=== PATIENT | male | born 1980 | race Caucasian/White ===

== ENCOUNTER 2019-09-12 10:54 | Inpatient (IN) ==
[2019-09-12] MEDS ORDERED: ATIVAN IV ONE (11:22)
[2019-09-12] MEDS ORDERED: NS 1,000 ML IV ONE (11:22)
[2019-09-12] MEDS ORDERED: MAGNESIUM SULFATE 2 GM/S.W.I. 2 GM/50 ML IVPB IV ONE (11:23)
[2019-09-12 11:55] LABS: BASO# 0.06 X1000 (0.0-0.2); BASO% 0.8 % (0.0-0.8); EOS# 0.02 X1000 (0.0-0.7); EOS% 0.3 % (0.0-10.0); HEMATOCRIT 42.5 % (42.0-52.0); HEMOGLOBIN 15.4 g/dL (14.0-18.0); IMM GRAN# 0.02 X1000 (0.0-0.04); IMM GRAN% 0.3 % (0.0-0.5); LYMPH# 3.17 X1000 (1.2-3.4); LYMPH% 40.9 % (20.5-51.1); MCH 28.4 PG (27-31); MCHC 36.2 g/dL (33-37); MCV 78.3 FL (81-99); MONO# 0.86 X1000 (0.11-0.59); MONO% 11.1 % (1.7-9.3); MPV 9.5 FL (7.4-10.4); NEUT# 3.63 X1000 (1.4-6.5); NEUT% 46.6 % (42.2-75.2); PLT 218 X1000 (130-400); RBC 5.43 XMIL (4.7-6.1); RDW 13.5 % (11.5-14.5); WBC 7.76 X1000 (4.8-10.8)
--- NOTE | 2019-09-12 11:56 | Diag Imaging Result Doc PS360 ---
CHEST-PORTABLE - 09/12/2019 INDICATION: withdrawals COMPARISON: None FINDINGS: The lungs are normally expanded and clear. Heart size and mediastinal contours are normal. No pneumothorax or pleural effusion. IMPRESSION: Negative exam. Electronically signed by Nikita Wilson 09/12/2019 11:54 AM
[2019-09-12 12:03] LABS: PTT 38.9 Seconds (22.3-41.8)
[2019-09-12 12:13] LABS: ACETONE SERUM NEGATIVE (NEGATIVE)
[2019-09-12 12:35] LABS: INR 2.1; PROTIME 24.1 Seconds (11.0-16.0)
[2019-09-12 12:42] LABS: URINE SOURCE CLEAN CATCH
--- NOTE | 2019-09-12 12:44 | EKG Report ---
Test Performed on : 09/12/2019 12:19:30 PM Test Reason : tachycardia Blood Pressure : / mmHG Vent. Rate : 116 BPM Atrial Rate : 116 BPM P-R Int : 134 ms QRS Dur : 098 ms QT Int : 346 ms P-R-T Axes : 067 005 -16 degrees QTc Int : 480 ms Sinus tachycardia. Junctional ST depression, probably normal Borderline ECG No previous ECGs available Unconfirmed Result
[2019-09-12 12:53] LABS: ACETAMINOPHEN < 1.2 ug/mL (10-30); AGAP 12; ALB/GLOB RATIO 1.7; ALBUMIN 4.3 g/dL (3.5-5.0); ALKALINE PHOSPHATASE 73 U/L (32-122); BUN 10 mg/dL (8-22); CALCIUM 8.5 mg/dL (8.8-10.2); CHLORIDE 93 mmol/L (98-107); CK PROFILE 972 U/L (24-204); COSMO 274; CREATININE 0.6 mg/dL (0.7-1.2); ESTIMATED GFR > 60; GLUCOSE 114 mg/dL (70-104); LIPASE 115 U/L (13-60); MAGNESIUM 1.3 mg/dL (1.5-2.7); POTASSIUM 3.4 mmol/L (3.5-5.1); SODIUM 137 mmol/L (136-145); TCO2 32 mmol/L (25-35); TOTAL PROTEIN 6.9 g/dL (6.3-8.3)
[2019-09-12 12:59] LABS: BILIRUBIN URINE MODERATE (NEGATIVE); BLOOD URINE MODERATE (NEGATIVE); COLOR YELLOW; GLUCOSE URINE TRACE mg/dL (NEGATIVE); KETONE URINE 10 mg/dL (NEGATIVE); LEUKOCYTES URINE NEGATIVE (NEGATIVE); NITRITE URINE NEGATIVE (NEGATIVE); PROTEIN URINE >600 mg/dL (NEGATIVE); SP GRAVITY URINE 1.035; TURBIDITY URINE CLEAR (CLEAR); UR AMPHETAMINES QUAL NONE DETECTED (NONE DETECT); UR BARBITUATES QUAL NONE DETECTED (NONE DETECT); UR BENZODIAZEPIN QUAL NONE DETECTED (NONE DETECT); UR CANNABINOIDS QUAL NONE DETECTED (NONE DETECT); UR COCAINE QUAL NONE DETECTED (NONE DETECT); UR METHADONE QUAL NONE DETECTED (NONE DETECT); UR OPIATES QUAL NONE DETECTED (NONE DETECT); UR OXYCODONE QUAL NONE DETECTED (NONE DETECT); UR PCP QUAL NONE DETECTED (NONE DETECT); UROBILINOGEN URINE 8 mg/dL (NORMAL)
[2019-09-12] MEDS ORDERED: M.V.I.-12 10 ML, FOLIC ACID 1 MG, MAGNESIUM SULFATE 1 GM, THIAMINE 100 MG in NS 1,000 ML IV ONE (13:00)
[2019-09-12 13:01] LABS: UR EPITHELIAL CELLS <10 /HPF (<10); URINE BACTERIA NEGATIVE /HPF; URINE WBC <10 /HPF (<10)
[2019-09-12 13:10] LABS: GOT 3519 U/L (10-34); GPT 3629 U/L (10-44)
[2019-09-12 13:42] LABS: CK INDEX 1.4 (0.0-2.5); CK-MB 13.94 ng/mL (0.0-5.0)
--- NOTE | 2019-09-12 15:28 | Diag Imaging Result Doc PS360 ---
EXAM: CT ABD/PELVIS W/IV CONT ONLY 09/12/2019 HISTORY: hepatitis TECHNIQUE: This exam was performed using automated exposure control, adjustment of mA or kV according to patient size, and/or use of iterative reconstruction technique. COMMENT: There are no previous studies available for comparison. There is no evidence of acute disease in the visualized portion of the chest. The liver is hypodense with atrophy and/or resection of the right lobe and hypertrophy of the left. The spleen is not enlarged. The pancreas is unremarkable. The adrenal glands are not enlarged. There are surgical clips adjacent to the right hepatic surface. The portal vein appears to be patent. The aorta is not distended. The kidneys are without evidence of hydronephrosis or mass. There is a small cortical cyst laterally in the mid left renal cortex. There is no evidence of bowel obstruction. There is no evidence of appendicitis. No significant adenopathy is present. Pelvis: There is no evidence of free fluid. The urinary bladder is not distended. The regional skeleton is intact. IMPRESSION: Postsurgical changes. Cirrhosis and/or hepatic steatosis. Electronically signed by Vijay Aviles 09/12/2019 3:26 PM
[2019-09-12] MEDS ORDERED: STERILE WATER INJ. INJ ONE (15:47)
[2019-09-12] MEDS ORDERED: BENADRYL IV ONE (15:47)
[2019-09-12] MEDS ORDERED: GEODON IM ONE (15:47)
[2019-09-12] MEDS ORDERED: VITAMIN K 10 MG in NS 50 ML IV ONE (16:51)
[2019-09-12] MEDS ORDERED: BENTYL PO PRN (16:56)
[2019-09-12] MEDS ORDERED: ATARAX PO PRN (16:56)
--- NOTE | 2019-09-12 18:25 | PROVIDER DOCUMENTATION ---
This chart was entered by Anuel Stone Scribe, acting as scribe for Ron Amos MD. HPI-General Adult - General Chief Complaint: Alcohol Withdrawal Stated Complaint: Alcohol withdrawal Time Seen by Provider: 09/12/19 11:04 Source: patient Allergies/Adverse Reactions: Patient Allergies Allergy/AdvReac Type Severity Reaction Status Date / Time cilnidipine Allergy Unknown Verified 09/12/19 12:04 Home Medications: Home Medication List Medication Instructions Recorded Confirmed Last Taken Type Amlodipine [Norvasc] 5 mg PO DAILY 09/12/19 09/12/19 Unknown History LISINOpril [Prinivil] 20 mg PO DAILY 09/12/19 09/12/19 Unknown History - History of Present Illness -Gen Adult Nature of Presenting Problems: 39 y/o M presents to the ED via EMS c/o alcohol withdrawals. Patient reports that he has been binge drinking for about a week and stopped last night. Patient does report abdominal pain and vomiting. Patient reports that in the past he has had seizures due to withdrawals but has not had one this time. Patient reported a history of liver cancer. Patient denies all other symptoms. Location of Pain/Injury: reports: abdomen Severity: reports: moderate Onset/Duration: reports: last night Timing: reports: still present Context/Activities at Onset: reports: none Modifying Factors: improves with: nothing Associated Symptoms: reports: vomiting Review of Systems - Adult - REVIEW OF SYSTEMS - ADULT Constitutional: denies: chills, fever Eyes: denies: blurred vision, double vision Ears, Nose, Mouth & Throat: reports: no symptoms reported Cardiovascular: denies: chest pain, palpitations Respiratory: denies: shortness of breath, wheezing Gastrointestinal: reports: abdominal pain, vomiting. denies: diarrhea Genitourinary: reports: no symptoms reported Musculoskeletal: reports: no symptoms reported Integumentary: reports: no symptoms reported Neurological: reports: no symptoms reported Psychiatric: reports: other (hallucinations) Endocrine: reports: no symptoms reported Hematologic/Lymphatic: reports: no symptoms reported Allergic/Immunologic: reports: no symptoms reported All Other Systems: Reviewed and Negative Past History - Adult - PAST MEDICAL HISTORY-ADULT Review of Records: reports: Old Records Reviewed, Nursing Assessment Review, Medications Reviewed, Social history reviewed & non-contributory. Major Childhood Illnesses: reports: denies history Cardiovascular: reports: HTN Respiratory: reports: denies history Gastrointestinal: reports: other (liver cancer) Obstetrical/Gynecological: reports: denies history Genitourinary: reports: denies history Musculoskeletal: reports: denies history Neurological: reports: denies history Endocrine/Immune: reports: denies history Other Conditions: reports: denies history - PRIOR SURGERIES/PROCEDURES Surgical/Procedure History: reports: cholecystectomy, hernia repair, orthopedic (extremity) - IMMUNIZATION STATUS Childhood Immunizations: See Nurse Assessment Flu Vaccine: See Nurse Assessment - SOCIAL HISTORY Substance Use: alcohol Alcohol Use Frequency: every day Living Situation: family (grandmother and uncle) Physical Exam-General - PHYSICAL EXAM-ADULT Initial Vital Signs Reviewed: Yes - CONSTITUTIONAL General Appearance: alert, no apparent distress - HEAD, EARS, NOSE, MOUTH & THROAT HENMT: other (dry mucous membranes) - NECK Neck: full range of motion, normal inspection - RESPIRATORY Respiratory: no respiratory distress, no accessory muscle use, other (tachypneic) - CARDIOVASCULAR Cardiovascular: tachycardia - GASTROINTESTINAL (ABDOMEN) Abdominal Exam: non tender, soft - MUSCULOSKELETAL Extremity: other (tremulous) - SKIN Integumentary: normal color, diaphoresis - PSYCHIATRIC Psych/Mental Status: normal mood/affect, oriented x 3 Progress - PLAN OF CARE/RESULTS Progress/Plan/Lab Results: Vital Signs - 8 hr 09/12/19 11:07 Temperature 99.0 F Pulse Rate 129 H Respiratory Rate 12 Blood Pressure 139/101 O2 Sat by Pulse Oximetry 98 Orders Category Date Time Status Cardiac Monitoring DIRECTED Care 09/12/19 11:20 Active Finger Stick Blood Sugar (ED) DIRECTED Care 09/12/19 11:20 Active Nursing- Obtain EKG once Care 09/12/19 11:20 Active Saline Loc NOW Care 09/12/19 11:20 Active CHEST-PORTABLE [RAD] Stat Exams 09/12/19 11:21 Ordered ACETAMINOPHEN [TDM] Stat Lab 09/12/19 11:32 Ordered ACETONE SERUM [CHEM] Stat Lab 09/12/19 11:32 Ordered ALCOHOL BLOOD Stat Lab 09/12/19 11:32 Ordered AMMONIA [CHEM] Stat Lab 09/12/19 11:20 Uncollected CBC WITH ELECTRONIC DIFF [HEME] Stat Lab 09/12/19 11:32 Ordered CK PROFILE [SP CHEM] Stat Lab 09/12/19 11:32 Ordered COMPREHENSIVE METABOLIC PANEL [CHEM] Stat Lab 09/12/19 11:32 Ordered LACTATE, PLASMA [CHEM] Stat Lab 09/12/19 11:21 Uncollected LIPASE [CHEM] Stat Lab 09/12/19 11:32 Ordered MAGNESIUM [CHEM] Stat Lab 09/12/19 11:32 Ordered PROTIME WITH INR [COAG] Stat Lab 09/12/19 11:32 Ordered PTT [COAG] Stat Lab 09/12/19 11:32 Ordered TROPONIN T Stat Lab 09/12/19 11:32 Ordered TSH Stat Lab 09/12/19 11:21 Ordered URINALYSIS W/POSS RFLX CULT [URINALYSIS] Stat Lab 09/12/19 11:21 Uncollected URINE DRUG SCREEN Stat Lab 09/12/19 11:21 Uncollected 0.9% Sodium Chloride Inj [Ns] 1,000 ml Med 09/12/19 11:22 Active IV 999 mls/hr Lorazepam [Ativan] Med 09/12/19 11:22 Discontinued 2 mg IV NOW ONE Magnesium Sulfate 2 gm/S.w.i. Med 09/12/19 11:23 Active 2 gm in 50 ml IV NOW Mvi [M.v.i.-12] 10 ml Med 09/12/19 11:22 Ordered Folic Acid 1 mg Magnesium Sulfate 1 gm Thiamine 100 mg 0.9% Sodium Chloride Inj [Ns] 1,000 ml IV NOW EKG [EKG] Stat Ther 09/12/19 11:20 Ordered Result Diagrams: 09/12/19 11:26 09/12/19 11:26 - REASSESSMENT Reassessment #1 Time Reassessed: 15:48 Status: unchanged (Patient given IV ativan, banana bag, magnesium, IVF. became more agitated and states he was seeing things. Given IM geodon/benadryl. Doubt patient is withdrawing with an alcohol level greater than 300. Will ask medicine to admit for acute alcohol hepatitis.) - EKG 1 Time of EKG reading by physician:: 12:39 EKG Read and Signed by:: Ron Amos EKG Interpretation (*Must complete 3 of following elements*): Abnormal Rate: 116 Rhythm: sinus tachycardia QRS: LVH - XRAY 1 XRAY Study: Chest Impression: See EMR Report (CHEST-PORTABLE - 09/12/2019 INDICATION: withdrawals COMPARISON: None FINDINGS: The lungs are normally expanded and clear. Heart size and mediastinal contours are normal. No pneumothorax or pleural effusion. IMPRESSION: Negative exam. Electronically signed by Nikita Wilson 09/12/2019 11:54 AM 09/12/19 1154 Interpreting Physician: Nikita Wilson MD Dictated Date/Time: 09/12/19 1154 cc: Ron Amos MD; None,PCP) - CT/MRI 1 CT Study: Abdomen Impression: Abnormal, See EMR Report ( EXAM: CT ABD/PELVIS W/IV CONT ONLY 09/12/2019 HISTORY: hepatitis TECHNIQUE: This exam was performed using automated exposure control, adjustment of mA or kV according to patient size, and/or use of iterative reconstruction technique. COMMENT: There are no previous studies available for comparison. There is no evidence of acute disease in the visualized portion of the chest. The liver is hypodense with atrophy and/or resection of the right lobe and hypertrophy of the left. The spleen is not enlarged. The pancreas is unremarkable. The adrenal glands are not enlarged. There are surgical clips adjacent to the right hepatic surface. The portal vein appears to be patent. The aorta is not distended. The kidneys are without evidence of hydronephrosis or mass. There is a small cortical cyst laterally in the mid left renal cortex. There is no evidence of bowel obstruction. There is no evidence of appendicitis. No significant adenopathy is present. Pelvis: There is no evidence of free fluid. The urinary bladder is not distended. The regional skeleton is intact. IMPRESSION: Postsurgical changes. Cirrhosis and/or hepatic steatosis. Electronically signed by Vjiay Aviles 09/12/2019 3:26 PM 09/12/19 1526 Interpreting Physician: Vijay Aviles MD Dictated Date/Time: 09/12/19 1520 cc: Ron Amos MD; None,PCP) - CONSULTS/PCP/HOSPITALIST Notification #1 *Consult/PCP/Hospitalist*: VICKY Hansen Time Discussed: 15:59 Consult Disposition: Admit Departure - Departure Date of Disposition Decision: 09/12/19 Time of Disposition Decision: 15:49 DIAGNOSIS: Acute alcoholic hepatitis, Alcohol intoxication delirium, acute, mixed level of activity Disposition: ADMITTED INPATIENT 09 Certified Medical Emergency: Emergent Condition: Fair - Critical Care Note This patient required my direct & personal management of CC.: Yes Total Time (mins): 38 (LANDCARE FACILITATOR/metabolic systems in peril without nuemerous interventions) Critical Care Statement: This patient required my direct personal management to treat or rule out processes, the absence of which, could potentiallly result in sudden, clinically significant life or limb threatening deterioration. Attestation - Physician/ STEVIE Attestation Patient care was provided by Advanced Practice Provider:: No The physician spent face to face time with patient:: Yes Advanced Practice Provider documentation review:: Supervising physician onsite and consulted in the evaluation and care of this patient. The physician did have a face to face encounter with the patient. This chart was documented by the indicated scribe, (Anuel Stone Scribe) and accurately reflects the services I performed and decisions made by me, Ron Amos MD, as attested by the provider's signature.
[2019-09-12] MEDS: NS 1,000 ML IV SCH (19:44)
[2019-09-12] MEDS: LIBRIUM PO SCH ×2 (19:46→23:52)
[2019-09-12] MEDS: LACTULOSE PO SCH (20:13)
--- NOTE | 2019-09-12 21:46 | HISTORY AND PHYSICAL ---
PRIMARY CARE PROVIDER: His own father. He states his name is Dr. Faheem Delcid, family practice in [place]. CHIEF COMPLAINT: Abdominal pain, nausea and vomiting. HISTORY OF PRESENT ILLNESS: Mr. Sung Delcid is a 39-year-old male who presents with complaints of reported abdominal pain, nausea and vomiting. Prior to getting detailed information, he had received a dose of Geodon and was unable to provide the chain of events, but before the Geodon started working he was able to provide his medical, surgical and social history. That includes Crohn disease with colon resection, liver cancer with tumor removal and high blood pressure. It also includes the fact that he drinks 4 or 5 alcoholic beverages called Four Rufino, which is a very high alcohol content. He also states that he used to drink a fifth to a pint of vodka a day. He has even been to rehab in the past. Laboratory data came back and showed significantly elevated liver enzymes, AST and ALT. Imaging shows the possibility of cirrhosis, but there is no obvious obstructions. He is also showing signs of withdrawal symptoms, where he was hallucinating. He told me he saw a cat on the ceiling, so we are going to admit him to the ICU for further workup and evaluation. PAST MEDICAL HISTORY: 1. Crohn disease with resection, he states 9 years ago. 2. Liver cancer in 2008 with tumor resection. He states they took about a fourth of the liver out. 3. Hypertension. PAST SURGICAL HISTORY: 1. Colon resection. 2. Left shoulder surgery x2. 3. Left elbow surgery. 4. Liver tumor resection. SOCIAL HISTORY: He is an [employer] ; he got out in 2013. He goes to the [facility] for his GI doctor. He states he drinks 4 or 5 alcoholic beverages called Four Rufino with a high alcohol concentration. He states that it is equivalent of 20 beers a day. He said he has done that for about a month, but prior to that it was a fifth to a pint of vodka daily. He has even had a stint in rehab, but was unable to really give any detail about that. He denies tobacco. He denies any illicit drug use. He does not work. He states he goes to school at [employer], but after that he started falling asleep and was unable to give any more detailed information. FAMILY HISTORY: He denied anything in his father or his mother. ALLERGIES: Cilnidipine. HOME MEDICATIONS: 1. Norvasc 5 mg p.o. daily. 2. Lisinopril 20 mg p.o. daily. REVIEW OF SYSTEMS: Unable to obtain. PHYSICAL EXAMINATION: VITAL SIGNS: Temperature 99 degrees, heart rate 113, respiratory rate 18, blood pressure 161/107, O2 saturation 96% on room air. GENERAL: Five feet 8 inches tall, 185 pounds. BMI is 28.1. Mr. Sung Delcid is a 39-year- old male. He was slightly agitated, hard to concentrate, and now he is very lethargic from the Geodon he received. He answered some questions appropriately until that started working. HEENT: Atraumatic, normocephalic. Pupils equal, round and reactive to light. Extraocular movements intact. Mucous membranes very dry. NECK: Trachea midline. CARDIOVASCULAR: S1, S2. Tachycardic rate and rhythm. No rubs, gallops or murmurs. No lower extremity edema. Dorsalis and radial pulses +2. Negative JVD or carotid bruits. PULMONARY: Clear to auscultate. Bilateral breath sounds. No accessory muscle use or work of breathing noted. GASTROINTESTINAL: Soft. Tender in the lower quadrants. Positive bowel sounds x4. EXTREMITIES: Moves all extremities equally. Full range of motion. NEUROLOGIC: Oriented to name, but could not ask full orientation as the Geodon started to work. SKIN: Warm, dry, intact. LABORATORY DATA: White blood cells 7000, hemoglobin 15, hematocrit 42, platelet count 218,000. INR is 2.1, PTT is 38.9. Sodium 137, potassium 3.4, BUN 10, creatinine 0.6, glucose 114, calcium 8.5, magnesium 1.3, bilirubin 1.4, AST 3519, ALT 3629, alkaline phosphatase 73. Ammonia 40. CK 972, troponin 0.012. Albumin 4.3. Lipase 115. Lactate 3.5. TSH 1.93. Urinalysis greater than 600 on the protein, 10 ketones, moderate blood, moderate bilirubin, 8 urobilinogen, 10-20 red blood cells, negative bacteria. Urine drug screen negative. Acetaminophen less than 1.2. Alcohol level 345. Acetone is negative. DIAGNOSTIC DATA: 1. Abdominopelvic CT: There are postsurgical changes on the liver. The liver is hypodense with atrophy and/or resection of the right lobe, and hypertrophy of the left lobe. The spleen is not enlarged. The pancreas is unremarkable. There are some signs of possibly cirrhosis and/or hepatic steatosis. 2. Chest x-ray: Negative exam. 3. EKG: Sinus tachycardia, junctional ST depression, rate 116, QTc 480. ASSESSMENT AND PLAN: 1. Alcohol intoxication. We will put him on Librium taper. He is hallucinating. 2. Alcoholic hepatitis, acute injury. We will get Gastroenterology consulted. We will send off a hepatitis panel. We will also go ahead and get him started on lactulose. 3. Mild coagulopathy. He is going to get a dose of vitamin K. 4. Toxic-metabolic encephalopathy, likely secondary to alcohol intoxication and liver dysfunction. He is going to be monitored in the intensive care unit. 5. Hypertension. We will continue his home medications for tomorrow unless he becomes hypotensive, then we will discontinue his home medications. 6. Alcohol withdrawal. Again, hallucinating, and he is going to be on a taper. He can have p.r.n. Ativan. 7. Deep venous thrombosis prophylaxis. Sequential compression devices. 8. Alcohol abuse. We will discuss possible rehab once again. Dictated by VICKY Rodrigues for Kendrick Ac MD cc: VICKY Rodrigues Patient markedly somnolent after geodon administration. completely noncooperative with me although he arouses briefly to stimulation. was reportedly hallucinating earlier. likely delirium tremens. monitor closely in the ICU to watch for seizures. MTDD
[2019-09-13 03:26] LABS: BASO# 0.04 X1000 (0.0-0.2); BASO% 0.5 % (0.0-0.8); EOS# 0.06 X1000 (0.0-0.7); EOS% 0.8 % (0.0-10.0); HEMATOCRIT 38.9 % (42.0-52.0); HEMOGLOBIN 13.6 g/dL (14.0-18.0); IMM GRAN# 0.02 X1000 (0.0-0.04); IMM GRAN% 0.3 % (0.0-0.5); LYMPH# 2.09 X1000 (1.2-3.4); LYMPH% 27.7 % (20.5-51.1); MCH 28.2 PG (27-31); MCV 80.7 FL (81-99); MONO# 0.71 X1000 (0.11-0.59); MONO% 9.4 % (1.7-9.3); MPV 9.7 FL (7.4-10.4); NEUT# 4.63 X1000 (1.4-6.5); NEUT% 61.3 % (42.2-75.2); PLT 162 X1000 (130-400); RBC 4.82 XMIL (4.7-6.1); RDW 13.6 % (11.5-14.5); WBC 7.55 X1000 (4.8-10.8)
[2019-09-13 03:37] LABS: INR 1.52; PROTIME 18.6 Seconds (11.0-16.0); PTT 33.2 Seconds (22.3-41.8)
[2019-09-13 04:31] LABS: AGAP 21; ALB/GLOB RATIO 1.7; ALBUMIN 3.8 g/dL (3.5-5.0); ALKALINE PHOSPHATASE 77 U/L (32-122); BUN 11 mg/dL (8-22); CALCIUM 8.5 mg/dL (8.8-10.2); CHLORIDE 97 mmol/L (98-107); COSMO 277; CREATININE 0.6 mg/dL (0.7-1.2); ESTIMATED GFR > 60; GLUCOSE 62 mg/dL (70-104); GOT 2200 U/L (10-34); GPT 2687 U/L (10-44); MAGNESIUM 1.5 mg/dL (1.5-2.7); POTASSIUM 3.5 mmol/L (3.5-5.1); SODIUM 140 mmol/L (136-145); TCO2 22 mmol/L (25-35); TOTAL BILIRUBIN 2.45 mg/dL (0.20-1.00)
[2019-09-13] MEDS: LIBRIUM PO SCH ×3 (06:10→18:24)
[2019-09-13] MEDS: LACTULOSE PO SCH (09:19)
[2019-09-13] MEDS: ZOFRAN IV PRN ×2 (09:19→16:19)
[2019-09-13] MEDS: NORVASC PO SCH (09:20)
[2019-09-13] MEDS: PRINIVIL PO SCH (09:20)
[2019-09-13] MEDS: ROBAXIN PO PRN ×2 (10:00→16:19)
--- NOTE | 2019-09-13 10:00 | Diag Imaging Result Doc PS360 ---
EXAM: CHEST-PORTABLE 09/13/2019 HISTORY: cough, borderline O2 sats TECHNIQUE: AP portable at 0911 COMMENT: There is no evidence of acute cardiac or pulmonary disease. Compared to the previous study of 09/12/2019 there has been no significant change. IMPRESSION: No evidence of acute disease. Electronically signed by Vijay Aviles 09/13/2019 9:58 AM
--- NOTE | 2019-09-13 13:21 | PROGRESS NOTE ---
DATE: 09/13/2019 INTERVAL HISTORY: Patient's mental status markedly improved. No further hallucinations. No further abdominal pain, nausea or vomiting. Still slightly tachycardic and slightly tremulous, but markedly improved from previous. No new complaints. REVIEW OF SYSTEMS: Twelve point review of systems negative, except as per interval history. LABS: WBC 7.5, hemoglobin 13.6, hematocrit 38.9, platelets 162. INR 1.5. Sodium 140, potassium 3.5, bicarbonate 22. BUN 11, creatinine 0.6, glucose 62. Total bilirubin 2.45, AST 2200, ALT 2667. VITALS: T-max 99.7 degrees, pulse 106, respirations 20, blood pressure 155/88, O2 saturation 98% on room air. PHYSICAL EXAMINATION: General: No acute distress. Vitals: As above. HEENT: Normocephalic, atraumatic. Moist mucous membranes. No obvious scleral jaundice. Cardiovascular: Slightly tachycardic, but regular. No murmurs noted. Pulmonary: Clear to auscultation bilaterally. Abdomen: Soft, nontender, nondistended. Bowel sounds positive. Extremities: Peripheral pulses intact. No clubbing, cyanosis. Neurologic: Cranial nerves grossly intact. No focal deficits. Minimal tremulousness noted. Psychiatric: Awake, alert, not fully oriented, cooperative and answering questions appropriately. ASSESSMENT AND PLAN: 1. Alcohol intoxication, alcohol withdrawal, possible hepatic encephalopathy. The patient admitted with confusion, hallucinations, agitation. Had a pretty significant alcohol level on admission that stated that I thought I felt that he was withdrawing. It did improve somewhat with Ativan. Given elevated bilirubin and long history of alcohol abuse, there was also concern for hepatic encephalopathy, although his ammonia was not really elevated. Markedly improved this morning. Given improvement overnight with only a couple doses of lactulose and the Librium, lean more towards alcohol withdrawal than hepatic encephalopathy. We will go ahead and hold lactulose for now. Continue Librium taper. Will continue banana bag. 2. Likely alcoholic hepatitis. The patient with elevated bilirubin and significantly elevated liver function tests in the 3000s. Suspect alcoholic hepatitis as imaging showed no evidence of obstruction. Bilirubin is actually worse today, although AST and ALT are trending down. Gastroenterology recommendations pending, but suspect we can just treat symptomatically and monitor, unless his bilirubin continues to worsen significantly. 3. Coagulopathy. INR has improved somewhat with the dose of vitamin K yesterday. Continue to monitor. 4. Toxic metabolic encephalopathy. Likely secondary to both alcohol intoxication and withdrawal. Essentially resolved at this point. 5. Hypertension. We will continue home medications and monitor. The patient's blood pressure has been moderately elevated, so at least may end up having to add an additional agent. 6. Alcohol abuse. We have discussed cessation. 7. History of liver cancer. Status post resection reportedly for cure. No obvious evidence of recurrence on imaging.
[2019-09-13] MEDS: M.V.I.-12 10 ML, FOLIC ACID 1 MG, MAGNESIUM SULFATE 1 GM, THIAMINE 100 MG in NS 1,000 ML IV SCH (16:13)
[2019-09-13] MEDS ORDERED: SODIUM CHLORIDE 0.9% INJ SCH (22:30)
[2019-09-13] MEDS: NS 1,000 ML IV SCH (23:00)
[2019-09-13] MEDS: ATIVAN IV PRN (23:10)
[2019-09-13] MEDS: PROTONIX IV SCH (23:12)
[2019-09-14] MEDS: LIBRIUM PO SCH ×3 (02:43→17:40)
[2019-09-14 06:13] LABS: BASO# 0.02 X1000 (0.0-0.2); BASO% 0.4 % (0.0-0.8); EOS# 0.14 X1000 (0.0-0.7); EOS% 3.1 % (0.0-10.0); HEMATOCRIT 39.4 % (42.0-52.0); HEMOGLOBIN 13.8 g/dL (14.0-18.0); LYMPH# 2.27 X1000 (1.2-3.4); LYMPH% 50.6 % (20.5-51.1); MCH 28.8 PG (27-31); MCV 82.3 FL (81-99); MONO# 0.23 X1000 (0.11-0.59); MONO% 5.1 % (1.7-9.3); NEUT# 1.83 X1000 (1.4-6.5); NEUT% 40.8 % (42.2-75.2); PLT 125 X1000 (130-400); RBC 4.79 XMIL (4.7-6.1); RDW 13.4 % (11.5-14.5); WBC 4.49 X1000 (4.8-10.8)
[2019-09-14 06:36] LABS: INR 1.19; PROTIME 15.3 Seconds (11.0-16.0)
[2019-09-14 06:50] LABS: AGAP 13; ALB/GLOB RATIO 1.3; ALBUMIN 3.9 g/dL (3.5-5.0); ALKALINE PHOSPHATASE 86 U/L (32-122); BUN 9 mg/dL (8-22); CALCIUM 8.8 mg/dL (8.8-10.2); CHLORIDE 102 mmol/L (98-107); COSMO 284; CREATININE 0.7 mg/dL (0.7-1.2); ESTIMATED GFR > 60; GLUCOSE 140 mg/dL (70-104); MAGNESIUM 1.5 mg/dL (1.5-2.7); POTASSIUM 2.7 mmol/L (3.5-5.1); SODIUM 142 mmol/L (136-145); TCO2 27 mmol/L (25-35); TOTAL BILIRUBIN 2.87 mg/dL (0.20-1.00); TOTAL PROTEIN 6.9 g/dL (6.3-8.3)
[2019-09-14 07:15] LABS: GOT 1002 U/L (10-34); GPT 1912 U/L (10-44)
[2019-09-14] MEDS: ATIVAN IV PRN ×2 (07:55→13:44)
--- NOTE | 2019-09-14 08:02 | GASTROENTEROLOGY CONSULTATION ---
DATE: 09/13/2019 REQUESTING PHYSICIAN: Dr. Ac. REASON FOR CONSULTATION: Elevated liver enzymes, history of alcoholism. HISTORY OF PRESENT ILLNESS: Mr. Delcid is a 39-year-old male who was admitted on 09/12/2019 for abdominal pain, nausea and vomiting. The patient was noted to have elevated liver enzymes on lab work. The patient acknowledges drinking 4 to 5 alcoholic beverages every day. He also used to drink a pint to a 5th of vodka every day. He has history of alcoholism and has been to alcohol rehab in the past. He has had relapses in the past as well. In the hospital, he had imaging which showed postsurgical changes in the liver, and the liver is hypodense with atrophy and resection of the right lobe, and hypertrophy of the left lobe. There were signs of possible cirrhosis and/or hepatic steatosis. On admission, his liver enzymes were AST of 3519, ALT of 3629, total bilirubin 1.4 and alkaline phosphorus was 73. In the last 24 hours, they are showing a down trend, AST of 2200, ALT of 2687, and alkaline phosphatase of 77. The bilirubin is trending up at 2.45. His admission blood alcohol level was 345 and, so far today, it is trending down to 59. His Tylenol level was undetectable; otherwise, a tox screen was negative. Gastrointestinal was consulted for further management. PAST MEDICAL HISTORY: Crohn disease with resection, he says 9 years ago, liver cancer in 2008 with tumor resection, he states they took about 1/4 of his liver, hypertension, alcoholism requiring alcohol rehab and relapse. PAST SURGICAL HISTORY: Colon resection for Crohn disease, left shoulder surgery x2, left elbow surgery, liver tumor resection 2008. SOCIAL HISTORY: He is an [employer] , he got out in 2013. He goes to [facility], he states he drinks 4 to 5 alcoholic beverages called [place] with a high alcohol concentration, he states that it is equivalent to 20 beers a day. He said he has done that for about a month, but prior to that, it was a pint to a 5th of vodka daily. He denies any tobacco abuse. He denies any other illicit drug abuse. He does not work, he states he goes to school at [employer]. He states his family doctor is his father, Dr. Sung Delcid, who is a family practice physician in [place]. ALLERGIES: Clinidipine. HOME MEDICATIONS: 1. Norvasc 5 mg daily. 2. Lisinopril 20 mg daily. INPATIENT MEDICATIONS INCLUDE: 1. Norvasc 5 mg p.o. daily. 2. Multivitamin once daily. 3. Librium 50 mg p.o. q.8 hours. 4. Bentyl 20 mg p.o. q.6 hours as needed. 5. Atarax 50 mg p.o. q.6 hours as needed. 6. Lisinopril 20 mg daily. 7. Lorazepam 1 mg IV q.2 hours as needed. 8. Robaxin 750 mg p.o. q.6 hours. 9. Normal saline 40 mL/h. 10. Zofran 4 mg IV every 4 hours as needed. 11. Patient is on heart healthy diet. REVIEW OF SYSTEMS: Denies any fevers, rigors, chills, chest pain, shortness of breath, dyspnea. Denies any vomiting blood. Denies any blood in the stools. Does complain of abdominal discomfort and nausea. Denies vomiting, he has no vomiting so far today. He had liquid brown stools today. He has struggled with alcohol addiction for a while. He denies any current neurological complaints. PHYSICAL EXAM: Vital signs: Temperature 99.2, pulse of 65, respiratory rate 18, blood pressure of 143/87, saturating 97% on room air. Body weight of 162 pounds 3 ounces. BMI of 24.7 kg/m2. General Appearance: Moderately malnourished, lying in bed, in no acute distress. HEENT: No pallor. Mild icterus. Pupils equal, react to light. Neck: Supple. Abdomen: Soft, mild discomfort in the periumbilical region. No rebound. No guarding. Extremities: No cyanosis, clubbing. Neurologic: He is alert, awake, oriented. Eyes with no asterixis. LABS: Hemoglobin and hematocrit is 13.2 and 38.9, white count of 7.5, platelet count 162,000, MCV of 80.7. INR 1.52, PT of 18.6, PTT of 33.2. Sodium 140, potassium 3.5, chloride 97, bicarb 22, anion gap 21, BUN of 11, creatinine 0.6. Glucose of 62, calcium is 8.5, magnesium 1.5, total bilirubin is 2.45, AST 2200, ALT 2687, alkaline phosphatase is 77. Ammonia 50. Total protein is 6, albumin of 3.8, lipase of 115. Lactate of 3.5. Urinalysis: Positive protein, some ketones, moderate blood, moderate bilirubin and toxicology positive for blood alcohol of 344 on admission, current level 59. CT of the abdomen was done on admission in showed the liver is hypodense with atrophy and/or resection of the right lobe, and hypertrophy of the left. The spleen is not enlarged. The pancreas is unremarkable. The adrenal glands are not enlarged. The surgical clips adjacent to the right hepatic area. Aorta is not distended. There is a small cortical cyst laterally in the mid left renal cortex. IMPRESSION: 1. Alcohol intoxication. 2. Alcoholic hepatitis. 3. Elevated liver enzymes. 4. Coagulopathy. 5. Toxic metabolic encephalopathy, which has resolved at this moment. 6. Hypertension. 7. Alcohol abuse. 8. History of liver cancer status post resection in 2008. 9. History of Crohn's disease status post colon resection in 2008. RECOMMENDATIONS: The patient will continue on multivitamin once daily. He will continue on banana bag once daily. He is already on Librium regimen, and Benadryl. He is also on IV Ativan as needed. We will watch him closely for alcohol withdrawal. Continue to trend liver enzymes and daily INR. We will give vitamin K once daily for 3 days. He will receive IV fluids per the primary team. The patient was counseled to quit alcohol completely. The above plan of care was discussed with the patient and all questions answered. Please call us with any further questions. We will follow along. cc: Dr. Osorio Polk MD [facility]
[2019-09-14] MEDS: NORVASC PO SCH (09:02)
[2019-09-14] MEDS: PRINIVIL PO SCH (09:02)
[2019-09-14] MEDS: VITAMIN K 10 MG in NS 50 ML IV SCH (09:02)
[2019-09-14] MEDS ORDERED: POTASSIUM CHLORIDE 60 MEQ in NS 500 ML IV ONE (09:15)
--- NOTE | 2019-09-14 14:17 | PROGRESS NOTE ---
DATE: 09/14/2019 INTERVAL HISTORY: Patient doing quite well. Encephalopathy entirely resolved. No further hallucinations. No tachycardia and minimal tremulousness this morning. REVIEW OF SYSTEMS: Twelve point review of systems negative except as per interval history. LABORATORY DATA: WBC 4.4, hemoglobin 13.8, hematocrit 39.4, platelets 125,000. INR 1.19. Sodium 142, potassium 2.7, bicarb 27, BUN 9, creatinine 0.7, glucose 140. Bilirubin 2.87, AST approximately 1000, ALT approximately 1900, alkaline phosphatase 86. PHYSICAL EXAMINATION: VITAL SIGNS: T-max 99.6 degrees, pulse 85, respirations 17, blood pressure 111/93, O2 saturation 99% on room air. PHYSICAL EXAMINATION: General: No acute distress. Vital signs: As above. HEENT: Normocephalic, atraumatic. Moist mucous membranes. No cervical adenopathy. Cardiovascular: Regular rate and rhythm. No murmurs noted. Pulmonary: Clear to auscultation bilaterally. Abdomen: Soft, nontender, nondistended. Bowel sounds positive. Extremities: Peripheral pulses intact. No clubbing, cyanosis, or edema. Neurologic: Cranial nerves grossly intact. No focal deficits. Minimal tremor. Psychiatric: Awake alert. He is now fully oriented x3, cooperative. ASSESSMENT AND PLAN: 1. Alcohol intoxication, alcohol withdrawal. The patient admitted with confusion, hallucinations, agitation. Had a fairly significant alcohol level about 350 on admission, but he felt that he was withdrawing. Did improve with Ativan. Given elevated bilirubin and long history of alcohol abuse, there was also concern for hepatic encephalopathy, but ammonia was within normal limits and his rapid improvement with only with Ativan over night suggests that is probably unlikely. Off lactulose now and continuing to do well. Continue Librium taper and a banana bag. 2. Likely alcoholic hepatitis. Patient admitted with elevated bilirubin and markedly elevated LFTs in 3000. Improving with supportive care. AST and ALT trending down rapidly. Bilirubin is still up slightly but looks like it may be plateauing. Hopefully will begin coming down in the immediate future. Continue to monitor. 3. Coagulopathy. INR essentially normalized with vitamin K. Monitor. 4. Toxic metabolic encephalopathy. Likely secondary to both alcohol intoxication and withdrawal. Resolved now. 5. Hypertension, acceptable control on current home medications, Norvasc and lisinopril. 6. Alcohol abuse. We have discussed alcohol cessation and patient expresses a strong desire to quit. Continuing Librium taper as above. 7. History of liver cancer, reportedly status post resection for cure. No evidence clear evidence of recurrence on imaging. 8. Disposition. If the bilirubin will start to come down and INR remains good, then may be able to be discharged tomorrow.
--- NOTE | 2019-09-14 14:22 | GASTROENTEROLOGY PROGRESS NOTE ---
DATE: 09/14/2019 SUBJECTIVE: Mr. Delcid 39 year old male resting in bed. Family at the bedside. He c/o nausea but has denied any vomiting. The patient did mention that he had 1 liquid bowel movement today. OBJECTIVE: Vital Signs: Temperature 97.5 degrees, pulse is 85, respirations 17, blood pressure 111/93, oxygen saturation 99% on room air. Patient's weight is 162 pounds. BMI is 24.7 kg/m2. General: He is alert, oriented x3, and in no acute distress. HEENT: Pale conjunctivae. Mild icterus. PERRL Neck: Supple. Lungs: Clear to auscultation in the anterior [place]. Cardiovascular: Regular rate and rhythm. Abdomen: Soft, mildly distended in the periumbilical area. No guarding. No rebound tenderness. Extremities: No clubbing, no cyanosis. No edema. Pedal pulses 2+ present bilaterally. Neurological: Alert and oriented x3. LABORATORY DATA: WBC 4.49, RBC 4.79, hemoglobin 13.8, hematocrit 39.4, platelet count is 125,000. Sodium 142, potassium 2.7, chloride 102, carbon dioxide is 27, anion gap 13, BUN 9, creatinine 0.7, glucose 114, calcium 8.8, magnesium 1.5, total bilirubin 2.87, AST 1002, ALT 1912, alkaline phos 86. IMAGING: Chest x-ray showed no evidence of acute disease. CT of the abdomen and pelvis showed postsurgical changes, cirrhosis and hepatic steatosis. IMPRESSION: 1. Alcohol intoxication. 2. Alcohol hepatitis. 3. Elevated liver enzymes. 4. Coagulopathy. 5. Toxic metabolic encephalopathy. 6. Hypertension. 7. Alcohol abuse. 8. History of liver cancer status post resection in 2008. 9. History of Crohn's disease, status post colon resection in 2008. PLAN: We will continue patient with multivitamin and he is receiving banana bag once daily. The patient is hypokalemia. His potassium is 2.7. He is receiving potassium chloride 60 mCi in 500 normal saline at 132.5 mL per PCP. He is also receiving vitamin K x3 days. We will continue him with Protonix 40 mg daily. For his alcohol withdrawals he is on Librium to be tapered, Ativan and Atrax for his anxiety per PCP. For his nausea he is receiving antiemetic Zofran. We will continue to monitor his CBC and BMP and follow the plan of care per PCP. This plan was discussed with Dr. Rizvi. Please call us for any further questions or concerns. Dictated by VICKY Ocasio for Jeovany Rizvi MD Physician Attestation I have seen and examined the patient. I have discussed and reviewed the the note by Yelitza PERRY and agree with findings and plan as documented. He presents with acute hepatitis A infection and alcohol intoxication. No CHCF. Continue supportive care and trending LFTs. MTDD
[2019-09-14 14:23] LABS: HEPATITIS PROFILE ACUTE SEE COMMENTS
[2019-09-14] MEDS: M.V.I.-12 10 ML, FOLIC ACID 1 MG, MAGNESIUM SULFATE 1 GM, THIAMINE 100 MG in NS 1,000 ML IV SCH (14:53)
[2019-09-14] MEDS: PROTONIX IV SCH (23:26)
[2019-09-15] MEDS: LIBRIUM PO SCH ×2 (04:01→04:20)
[2019-09-15 06:29] LABS: BASO# 0.01 X1000 (0.0-0.2); BASO% 0.3 % (0.0-0.8); EOS# 0.23 X1000 (0.0-0.7); EOS% 5.9 % (0.0-10.0); HEMATOCRIT 33.6 % (42.0-52.0); HEMOGLOBIN 11.4 g/dL (14.0-18.0); LYMPH# 1.41 X1000 (1.2-3.4); LYMPH% 36.1 % (20.5-51.1); MCH 28.4 PG (27-31); MCHC 33.9 g/dL (33-37); MCV 83.8 FL (81-99); MONO# 0.33 X1000 (0.11-0.59); MONO% 8.4 % (1.7-9.3); MPV 10.8 FL (7.4-10.4); NEUT# 1.93 X1000 (1.4-6.5); NEUT% 49.3 % (42.2-75.2); PLT 93 X1000 (130-400); RBC 4.01 XMIL (4.7-6.1); RDW 13.4 % (11.5-14.5); WBC 3.91 X1000 (4.8-10.8)
[2019-09-15 06:33] LABS: INR 1.04; PROTIME 13.7 Seconds (11.0-16.0)
[2019-09-15 06:59] LABS: AGAP 8; ALB/GLOB RATIO 1.3; ALBUMIN 3.2 g/dL (3.5-5.0); ALKALINE PHOSPHATASE 64 U/L (32-122); BUN 11 mg/dL (8-22); CALCIUM 8.1 mg/dL (8.8-10.2); CHLORIDE 102 mmol/L (98-107); COSMO 273; CREATININE 0.6 mg/dL (0.7-1.2); ESTIMATED GFR > 60; GLUCOSE 88 mg/dL (70-104); GOT 372 U/L (10-34); MAGNESIUM 1.4 mg/dL (1.5-2.7); POTASSIUM 3.9 mmol/L (3.5-5.1); SODIUM 137 mmol/L (136-145); TCO2 27 mmol/L (25-35); TOTAL BILIRUBIN 1.53 mg/dL (0.20-1.00); TOTAL PROTEIN 5.6 g/dL (6.3-8.3)
[2019-09-15 07:11] LABS: GPT 1079 U/L (10-44)
[2019-09-15] MEDS: PRINIVIL PO SCH (08:32)
[2019-09-15] MEDS: NORVASC PO SCH (08:32)
[2019-09-15] MEDS: VITAMIN K 10 MG in NS 50 ML IV SCH (08:33)
[2019-09-15] MEDS ORDERED: LIBRIUM PO SCH ×2 (09:00→12:00)
[2019-09-15] MEDS: M.V.I.-12 10 ML, FOLIC ACID 1 MG, MAGNESIUM SULFATE 1 GM, THIAMINE 100 MG in NS 1,000 ML IV SCH (13:53)
--- NOTE | 2019-09-15 15:15 | PROGRESS NOTE ---
DATE: 09/15/2019 SUBJECTIVE: Patient notes he is feeling a lot better. Denies any fevers or chills. Denies any withdrawal type symptoms. PHYSICAL: Temperature 98.7 degrees, pulse 70, respiratory 18, BP 118/60.General: Patient is awake, alert. He is in no distress. HEENT: Normocephalic. Neck: Supple. CV: Regular rate. No murmurs. Chest: Clear. Abdomen: Soft, nontender. Extremities: Moves all extremities. ASSESSMENT: 1. Acute alcohol withdrawal [*] resolved. We will stop Librium today. 2. Acute alcoholic hepatitis. 3. Hyperbilirubinemia. 4. Hypokalemia resolved. 5. Hypertension. PLAN: Overall patient has improved. His bilirubin is down to 1.5. His AST 327, ALT 1079 both of which are improved from yesterday. Hopefully we can discharge patient home later this afternoon if okay with GI and he can continue to follow up with them as an outpatient. cc: Vitaly Frederick MD
[2019-09-15 16:19] VITALS: BP 127/68
[2019-09-15 16:42] LABS: UR AMPHETAMINES QUAL NONE DETECTED (NONE DETECT); UR BARBITUATES QUAL NONE DETECTED (NONE DETECT); UR BENZODIAZEPIN QUAL PRESUMPTIVE POSITIVE (NONE DETECT); UR CANNABINOIDS QUAL NONE DETECTED (NONE DETECT); UR COCAINE QUAL NONE DETECTED (NONE DETECT); UR METHADONE QUAL NONE DETECTED (NONE DETECT); UR OPIATES QUAL NONE DETECTED (NONE DETECT); UR OXYCODONE QUAL NONE DETECTED (NONE DETECT); UR PCP QUAL NONE DETECTED (NONE DETECT)
--- NOTE | 2019-09-15 23:48 | GASTROENTEROLOGY PROGRESS NOTE ---
DATE: 09/15/2019 He is resting in bed. He is feeling better. He denies any fevers, rigors, chills. Denies any nausea or vomiting. He is eating well. He is tolerating 100% of his meals. He is moving his bowels. Denies any bloody vomiting or passing blood in the stools. His liver enzymes are coming down. OBJECTIVE: Vital signs: Temperature 98.9 degrees, pulse of 88, respiratory rate 18, blood pressure 127/68, saturating 98% room air. Body weight of 160 pounds, BMI 24.6 kg/m. General Appearance: Moderately nourished, lying in bed, in no acute distress. HEENT: Pale, mild pallor, mild icterus. Pupils equal, reactive to light. Neck: Supple. Abdomen: Soft, nontender, nondistended. No guarding or rebound. Extremities: No cyanosis or clubbing. Neurology: He is alert, awake, oriented. LABORATORY DATA: Hemoglobin and hematocrit 11.4 and 33.6, white count of 3.9, platelet count of 93, INR 1.0, PT of 13, sodium 139, potassium 3.9, chloride 102, bicarb of 27, anion gap of 8, BUN of 11, creatinine 0.6, glucose of 88, calcium is 8.1 magnesium. Calcium is 8.1, magnesium 1.4, total bilirubin is 1.53, AST 372, ALT 1379, alkaline phosphatase 60, total protein 5.6, albumin of 3.2, and tox screen positive for benzodiazepine. Hepatitis panel is positive for hepatitis a viral antibody IgM reactive. IMPRESSION AND PLAN: 1. Acute bilateral hepatitis A as per the serology. 2. Acute alcoholic hepatitis. 3. Alcoholism. 4. Elevated liver enzymes which are trending down. 5. Recommendations. The patient was recently released from [facility] a week ago where there was an outbreak of hepatitis A. The patient likely was exposed to hepatitis A at [facility]. The patient will continue to drink plenty of fluids. Avoid hepatotoxic drugs. He will follow up in the clinic in one week of discharge to follow up on liver enzymes. The patient counseled to quit alcohol completely. He will continue multivitamin once daily. The patient is eager to go home and he is feeling better. The patient was recommended to come back to the ER if he has any new symptoms. The patient is going to follow good hand hygiene. 6. Further recommend follow-up pending the hospital course. The above plan of care discussed with the patient and all questions answered. Please call us with any further questions. cc: Sunday Polk MD MTDD
== END 2019-09-15 16:23 | disposition home or self-care (01) | DRG 897 ==
LOC: SUPCPDRO → ED 10:54 → ICU 17:33 → SUATTDRO 17:33 → 4N 09-13 10:28
PROVIDERS: ATTEND Family Medicine

== ENCOUNTER 2019-12-24 10:52 | Inpatient (IN) ==
[2019-12-24] MEDS ORDERED: NS 1,000 ML IV ONE ×2 (11:08→13:34)
[2019-12-24] MEDS ORDERED: ZOFRAN IV ONE (11:08)
--- NOTE | 2019-12-24 11:08 | PROVIDER DOCUMENTATION ---
HPI-General Adult - General Stated Complaint: "RABDO" PER PATIENT Time Seen by Provider: 12/24/19 11:07 Source: patient Allergies/Adverse Reactions: Patient Allergies Allergy/AdvReac Type Severity Reaction Status Date / Time celecoxib [From Celebrex] Allergy RASH Verified 12/24/19 13:41 cilnidipine Allergy Unknown Verified 09/12/19 12:04 Home Medications: Home Medication List Medication Instructions Recorded Confirmed Last Taken Type LISINOpril [Prinivil] 20 mg PO DAILY 09/12/19 12/24/19 Unknown History Metoprolol [Lopressor] 25 mg PO DAILY 12/24/19 12/24/19 Unknown History - History of Present Illness -Gen Adult Nature of Presenting Problems: Pt. is 39 yom that presents with c/o muscle aches and Nausea with abd pain. He reports he has been in rabdo several times. Location of Pain/Injury: reports: generalized. denies: none, head, face, mouth, neck, chest, upper extremity, hand(s), abdomen, back, pelvis, genitalia, lower extremity, feet, upper body, lower body, other Pain Radiation: reports: no radiation. denies: arm(s), back, buttocks, chest, epigastric, feet, groin, jaw, flank (L), legs (lower), LLQ, LUQ, neck, periumbilical, flank (R), RLQ, RUQ, shoulder(s), scapula, scrotal, sternal notch, suprapubic, legs (upper), urethral, vaginal, other Quality of Pain: reports: aching. denies: burning, pressure, tightness Severity: reports: moderate. denies: mild, severe Onset/Duration: reports: gradual, 2 days ago Timing: reports: still present. denies: improving, intermittent, getting worse Context/Activities at Onset: reports: moderate activity, recent physical stress. denies: none, light activity, vigorous activity, recent emotional stress, recent trauma history, possible bad food, cold exposure, eating, out of country travel, rest, sleep, sexual activity, other Modifying Factors: improves with: nothing Associated Symptoms: reports: muscle aches, nausea. denies: denies symptoms, anxiety, arm pain, back/neck pain, chest pain, constipation, cough, diaphoresis, diarrhea, dizziness, EENT symptoms, fatigue, fever/chills, genitourinary problems, headaches, heartburn, joint pain, loss of appetite, malaise, sinus congestion/drainage, rash, seizure, shortness of breath, sensory/motor loss, pain with inspiration, swelling/mass in abdomen, syncope, vomiting, weakness, trouble walking, other Similar Symptoms Previously?: Yes Recently seen or treated by another doctor?: No Review of Systems - Adult - REVIEW OF SYSTEMS - ADULT Constitutional: reports: no symptoms reported Eyes: reports: no symptoms reported Ears, Nose, Mouth & Throat: reports: no symptoms reported Cardiovascular: reports: no symptoms reported Respiratory: reports: no symptoms reported Gastrointestinal: reports: see HPI, abdominal pain, nausea. denies: constipation, diarrhea, difficulty swallowing, vomiting Genitourinary: reports: no symptoms reported Musculoskeletal: reports: see HPI, muscle aches. denies: back pain, joint pain, neck pain Integumentary: reports: no symptoms reported Neurological: reports: no symptoms reported Psychiatric: reports: no symptoms reported Past History - Adult - PAST MEDICAL HISTORY-ADULT Review of Records: reports: Old Records Reviewed, Nursing Assessment Review, Medications Reviewed, Social history reviewed & non-contributory. - IMMUNIZATION STATUS Childhood Immunizations: See Nurse Assessment Flu Vaccine: See Nurse Assessment - FAMILY HISTORY Family History: reviewed, not pertinent - SOCIAL HISTORY Smoking: denies Physical Exam-General - PHYSICAL EXAM-ADULT Initial Vital Signs Reviewed: Yes - CONSTITUTIONAL General Appearance: alert, mild distress. negative: anxious, slow to respond, obtunded, combative - EYES Eyes: PERRL/EOMI, pink conjunctivae - HEAD, EARS, NOSE, MOUTH & THROAT HENMT: normocephalic/atraumatic, moist mucous membranes - NECK Neck: non-tender, full range of motion, supple, normal inspection - RESPIRATORY Respiratory: lungs clear, normal breath sounds - CARDIOVASCULAR Cardiovascular: regular rate, rhythm, no edema, tachycardia - GASTROINTESTINAL (ABDOMEN) Abdominal Exam: normal bowel sounds, non tender, soft. negative: guarding, rigid, rebound, tenderness - LYMPHATIC Lymphatic: no adenopathy - MUSCULOSKELETAL Back Exam: normal inspection, no CVA tenderness, no vertebral tenderness, muscle spasm Extremity: normal range of motion, non-tender, normal gait, normal inspection Peripheral Pulses: radial (R): 2+, radial (L): 2+ - SKIN Integumentary: normal color, normal turgor, warm/dry - NEUROLOGIC Neurologic: grossly normal, no motor/sensory deficits - PSYCHIATRIC Psych/Mental Status: normal mood/affect, normal thought content, normal thought process, oriented x 3. negative: anxious, paranoid, tearful Progress - PLAN OF CARE/RESULTS Progress/Plan/Lab Results: Laboratory Tests 12/24/19 12/24/19 12/24/19 11:47 11:58 11:58 WBC 15.14 H RBC 5.61 Hgb 14.4 Hct 44.0 MCV 78.4 L MCH 25.7 L MCHC 32.7 L RDW Std Deviation 15.3 H Plt Count 400 MPV 9.6 Immature Gran % (Auto) 0.4 Neut % (Auto) 75.1 Lymph % (Auto) 15.9 L [place] % (Auto) 8.0 Eos % (Auto) 0.3 Baso % (Auto) 0.3 Immature Gran # (Auto) 0.06 H Neut # (Auto) 11.39 H Lymph # (Auto) 2.40 [place] # (Auto) 1.21 H Eos # (Auto) 0.04 Baso # (Auto) 0.04 Sodium 136 Potassium 4.4 Chloride 100 Carbon Dioxide 25 Anion Gap 11 BUN 21 Creatinine 0.9 Estimated GFR/1.73 m2 > 60 BUN/Creatinine Ratio 23 Glucose 80 Calculated Osmolality 274 Calcium 9.6 Total Bilirubin 0.77 AST 209 H ALT 156 H Alkaline Phosphatase 47 Creatine Kinase 8254 H Creatine Kinase Index 1.3 CK-MB (CK-2) 104.10 H Total Protein 8.2 Albumin 4.2 Globulin 4.0 Albumin/Globulin Ratio 1.0 Urine Source CLEAN CATCH Urine Color YELLOW Urine Turbidity CLEAR Urine pH 6.5 Ur Specific [place] 1.041 Urine Protein 200 A Ur Glucose (Stick) NEGATIVE Ur Ketones (Stick) 20 A Urine Blood MODERATE A Urine Nitrite NEGATIVE Urine Bilirubin NEGATIVE Urobilinogen Dipstick NORMAL Urine Leukocytes NEGATIVE Urine WBC (Auto) <10 Urine RBC (Auto) <10 U Epithel Cells (Auto) <10 Urine Bacteria (Auto) NEGATIVE Discussed results and plan of care with patient. Patient agrees with plan and verbalizes understanding. Result Diagrams: 12/24/19 11:58 12/24/19 11:58 - CONSULTS/PCP/HOSPITALIST Notification #1 *Consult/PCP/Hospitalist*: Britany for hospitilist Time Discussed: 13:42 Reason/Comments: Admission Consult Disposition: Will see in ED, Admit Departure - Departure Date of Disposition Decision: 12/24/19 Time of Disposition Decision: 13:33 DIAGNOSIS: Rhabdomyolysis Qualifiers: Rhabdomyolysis type: non-traumatic Qualified Code(s): M62.82 - Rhabdomyolysis Disposition: ADMITTED INPATIENT 09 Certified Medical Emergency: Emergent Condition: Stable Referrals and Follow-Ups: None,PCP [Primary Care Provider] - - Critical Care Note This patient required my direct & personal management of CC.: No Attestation - Physician/ STEVIE Attestation Patient care was provided by Advanced Practice Provider:: Yes Advanced Practice Provider:: Nelsy Jose Advanced Practice Provider documentation review:: The Mid-level provider documentation, treatment plan and medical decision making was reviewed by the physician who agrees with all treatment and medical decision making by the MLP. The physician spent face to face time with patient:: No Advanced Practice Provider documentation review:: Supervising physician onsite and consulted in the evaluation and care of this patient. The physician did not have a face to face encounter with the patient.
[2019-12-24 12:21] LABS: BASO# 0.04 X1000 (0.0-0.2); BASO% 0.3 % (0.0-0.8); EOS# 0.04 X1000 (0.0-0.7); EOS% 0.3 % (0.0-10.0); HEMOGLOBIN 14.4 g/dL (14.0-18.0); IMM GRAN# 0.06 X1000 (0.0-0.04); IMM GRAN% 0.4 % (0.0-0.5); LYMPH% 15.9 % (20.5-51.1); MCH 25.7 PG (27-31); MCHC 32.7 g/dL (33-37); MCV 78.4 FL (81-99); MONO# 1.21 X1000 (0.11-0.59); MPV 9.6 FL (7.4-10.4); NEUT# 11.39 X1000 (1.4-6.5); NEUT% 75.1 % (42.2-75.2); PLT 400 X1000 (130-400); RBC 5.61 XMIL (4.7-6.1); RDW 15.3 % (11.5-14.5); WBC 15.14 X1000 (4.8-10.8)
[2019-12-24 12:22] LABS: BILIRUBIN URINE NEGATIVE (NEGATIVE); BLOOD URINE MODERATE (NEGATIVE); COLOR YELLOW; GLUCOSE URINE NEGATIVE (NEGATIVE); KETONE URINE 20 mg/dL (NEGATIVE); LEUKOCYTES URINE NEGATIVE (NEGATIVE); NITRITE URINE NEGATIVE (NEGATIVE); PH URINE 6.5; PROTEIN URINE 200 mg/dL (NEGATIVE); SP GRAVITY URINE 1.041; TURBIDITY URINE CLEAR (CLEAR); URINE SOURCE CLEAN CATCH; UROBILINOGEN URINE NORMAL (NORMAL)
[2019-12-24 12:23] LABS: UR EPITHELIAL CELLS <10 /HPF (<10); URINE BACTERIA NEGATIVE /HPF; URINE RBC <10 /HPF (<10); URINE WBC <10 /HPF (<10)
[2019-12-24 12:33] LABS: AGAP 11; ALBUMIN 4.2 g/dL (3.5-5.0); ALKALINE PHOSPHATASE 47 U/L (32-122); BUN 21 mg/dL (8-22); CALCIUM 9.6 mg/dL (8.8-10.2); CHLORIDE 100 mmol/L (98-107); COSMO 274; CREATININE 0.9 mg/dL (0.7-1.2); ESTIMATED GFR > 60; GLUCOSE 80 mg/dL (70-104); GOT 209 U/L (10-34); GPT 156 U/L (10-44); POTASSIUM 4.4 mmol/L (3.5-5.1); SODIUM 136 mmol/L (136-145); TCO2 25 mmol/L (25-35); TOTAL BILIRUBIN 0.77 mg/dL (0.20-1.00); TOTAL PROTEIN 8.2 g/dL (6.3-8.3)
[2019-12-24 12:57] LABS: CK PROFILE 8254 U/L (24-204)
[2019-12-24 13:22] LABS: CK INDEX 1.3 (0.0-2.5)
[2019-12-24 13:44] LABS: UR AMPHETAMINES QUAL NONE DETECTED (NONE DETECT); UR BARBITUATES QUAL NONE DETECTED (NONE DETECT); UR BENZODIAZEPIN QUAL NONE DETECTED (NONE DETECT); UR CANNABINOIDS QUAL PRESUMPTIVE POSITIVE (NONE DETECT); UR COCAINE QUAL NONE DETECTED (NONE DETECT); UR METHADONE QUAL NONE DETECTED (NONE DETECT); UR OPIATES QUAL NONE DETECTED (NONE DETECT); UR OXYCODONE QUAL NONE DETECTED (NONE DETECT); UR PCP QUAL NONE DETECTED (NONE DETECT)
[2019-12-24] MEDS ORDERED: ZOFRAN IV PRN (16:29)
[2019-12-24] MEDS: NS 1,000 ML IV SCH (16:51)
[2019-12-24] MEDS ORDERED: TYLENOL PO PRN (18:18)
--- NOTE | 2019-12-24 18:36 | EKG Report ---
Test Performed on : 12/24/2019 5:07:39 PM Test Reason : fatigue Blood Pressure : / mmHG Vent. Rate : 085 BPM Atrial Rate : 085 BPM P-R Int : 124 ms QRS Dur : 100 ms QT Int : 330 ms P-R-T Axes : 055 -06 -08 degrees QTc Int : 392 ms Normal sinus rhythm. with sinus arrhythmia. Nonspecific ST abnormality Abnormal ECG When compared with ECG of 12-SEP-2019 12:19, No significant change was found Unconfirmed Result
--- NOTE | 2019-12-24 19:21 | HISTORY AND PHYSICAL ---
PRIMARY CARE PROVIDER: None. CHIEF COMPLAINT: Rhabdomyolysis. Sore muscles. HISTORY OF PRESENT ILLNESS: Mr. Delcid is a pleasant, 39-year-old male who has a past medical history of Crohn disease with resection over 9 years ago, liver cancer with tumor resection, hypertension, alcoholism requiring alcohol rehab and relapses. His last admission was 09/12/2019 where he had acute hepatitis A. He reports since his tumor resection in 2008, he has had a couple episodes of rhabdomyolysis, usually associated with heavy exercise. He did report over the past week and a half he has been pushing hard at the gym and working 2 jobs associated with some lower body soreness as well as lower back soreness, some nausea and no appetite and some weight loss. He has gone from 193, 185 down to 173. He reports no fever, no chills. However, he reported 1 night where he woke up with sweating. Workup in the ED confirmed rhabdo with a CK of 82,554, CK-MB of 104, AST of 209, an ALT of 156. His creatinine was 0.9 and white count of 15, moderate blood in his urine, 200 protein, positive for cannabinoids. His alcohol level is none. He was given a 2 L fluid bolus. We will admit him to the floor. Monitor his kidney function and CK levels and continue with aggressive IV hydration. PAST MEDICAL HISTORY: Per HPI. PAST SURGICAL HISTORY: Colon resection for Crohn disease, left shoulder surgery x2, left elbow surgery, liver tumor resection in 2008. SOCIAL HISTORY: He is an [employer] . He got out in 2013. He [facility] to [facility]. His last alcohol drink, he reports was months ago, but he did have 1 drink about a week ago, but was not able to drink it. He did test positive for marijuana. 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 ALLERGIES: To Celebrex. HOME MEDICATIONS: Are metoprolol 25 mg p.o. b.i.d. and a multivitamin. REVIEW OF SYSTEMS: Twelve-point review of systems completely negative except for those mentioned in HPI. PHYSICAL EXAMINATION: VITAL SIGNS: Temperature is 98.6 degrees, heart rate 115, respirations 20, blood pressure 155/83, O2 is 98% on room air. GENERAL: Mr. Delcid is a pleasant, 39-year-old male who is sitting up in a recliner in [facility] [employer], talking on a cell phone in no acute distress. HEENT: Atraumatic, normocephalic. PERRL. NECK: Supple. Trachea midline. CARDIOVASCULAR: S1, S2 appreciated. No murmurs, gallops, rubs noted. RESPIRATORY: Lung sounds clear bilaterally. GI: Is soft, nontender, nondistended. Positive bowel sounds in 4 quadrants. LOWER EXTREMITIES: Negative for edema. I did not get to assess pedal pulses. He did have both tennis shoes still on. NEUROLOGIC: No focal deficits noted. LABORATORY DATA: White count 15, hemoglobin and hematocrit 14 and 44, platelet count is 400,000. Sodium 136, potassium 4.4, BUN is 21, creatinine 0.9, blood glucose is 80. AST 209, ALT 156. CK 8254, CK-MB is 104. Urinalysis 200 protein, moderate blood. Tox screen positive for cannabinoids. Alcohol level 0. ASSESSMENT AND PLAN: 1. Rhabdomyolysis. He was given 2 L bolus in the emergency department. We will continue with aggressive IV hydration. Continue to follow his kidney function and CKs. 2. Transaminitis. We will continue to trend. 3. Leukocytosis possibly reactive, not complaining of any fever or chills, productive cough, or burning with urination. 4. Hypertension. Continue home medications when appropriate. 5. Crohn's disease with resection. Aware. 6. Liver cancer in 2008 with tumor resection. 7. Alcoholism. Reports no alcohol since his last discharge. 8. Further recommendations to follow physician evaluation, laboratory and diagnostic data. Dictated by VCIKY Dinh for Donald Caldwell MD cc: Donald Caldwell MD I agree with most components of history, physical, assessment and plan. A separate addendum has been dictated. Considering his recurrent rhabdomyolysis, further investigation into any genetic myopathy e.g. Rajni's disease may be needed depending on his course in future. MTDD
--- NOTE | 2019-12-24 21:02 | HISTORY AND PHYSICAL ---
ADDENDUM TO THE HISTORY AND PHYSICAL: I agree with most components history physical, assessment and plan. In brief, Mr. Delcid is a 39 years old man with past medical history of recently diagnosed hepatitis A in September 2019, hepatocellular carcinoma status post resection in 2008, essential hypertension, past history of alcohol abuse, Crohn disease, who comes in with chief complaints of nausea, muscle ache, fatigue, and abdominal cramps of about 24 hours duration. Mr. 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 On top of that, he also has been working heavily in 2 of his jobs. He states often times when he has to do intense physical activity he goes into rhabdomyolysis and he has to come to the hospital. Since he was not feeling well, he decided to come to the emergency room. In the emergency room, he was found to have temperature of 98.6 degrees, pulse of 115, respiratory rate of 20, blood pressure of 155/83, saturating 95% on room air. Considering his rhabdomyolysis with a creatine kinase of over 8000, hospitalist team was consulted for further management and admission was requested. SUBJECTIVE: At the time of my evaluation, Mr. Delcid is feeling already better after intravenous fluid resuscitation. He states his nausea has become better, though he continues to have muscle aches. VITALS: Temperature 100.1 degrees, pulse 92, respiratory 20, blood pressure 125/78, saturating 97% room air. PHYSICAL EXAMINATION: GENERAL: Not in acute distress. MOUTH: Oral cavity is moist. LUNGS: Air entry bilaterally. No wheeze, rhonchi or crackles. HEART: S1 normal. No murmur, rub, or gallop. ABDOMEN: Soft, nontender. He has a transverse scar of previous hepatic resection. Active bowel sounds. EXTREMITY: No lower extremity edema. NEUROLOGIC: He is alert and oriented x3. LABS: Suggestive of WBC of 15,000, hemoglobin 14.4, platelet 400,000. His BUN is 21, creatinine 0.9. His CPK is 8200. AST and ALT are elevated. He had hematuria without RBC, likely because of rhabdomyolysis and positive urine cannabinoids. Electrocardiogram on presentation had nonspecific ST abnormality. ASSESSMENT AND PLAN: 1. Rhabdomyolysis due to intense physical activity. 2. Transaminitis likely rhabdomyolysis. 3. Cannabis use. 4. Nonspecific leukocytosis, tachycardia and mild fever in the setting of rhabdomyolysis. PLAN: I will aggressively hydrate the patient with intravenous fluids. Follow up with repeat electrolytes and liver function tests tomorrow. If he feels symptomatically better, he could be discharged home. Plan of care discussed with Mr. Delcid. He was counseled about stop using cannabis and be moderate with physical exercise. He understood it since he previously had rhabdomyolysis episode as well. He also was diagnosed with acute hepatitis A in September 2019. cc: Donald Caldwell MD
[2019-12-25] MEDS: NS 1,000 ML IV SCH ×3 (00:22→17:04)
[2019-12-25 06:20] LABS: AGAP 10; ALB/GLOB RATIO 1.3; ALBUMIN 3.4 g/dL (3.5-5.0); ALKALINE PHOSPHATASE 36 U/L (32-122); BUN 15 mg/dL (8-22); CALCIUM 8.2 mg/dL (8.8-10.2); CHLORIDE 105 mmol/L (98-107); COSMO 281; CREATININE 0.8 mg/dL (0.7-1.2); ESTIMATED GFR > 60; GLUCOSE 76 mg/dL (70-104); GOT 123 U/L (10-34); GPT 104 U/L (10-44); MAGNESIUM 1.7 mg/dL (1.5-2.7); POTASSIUM 4.7 mmol/L (3.5-5.1); SODIUM 141 mmol/L (136-145); TCO2 26 mmol/L (25-35); TOTAL BILIRUBIN 0.49 mg/dL (0.20-1.00)
[2019-12-25 06:38] LABS: CK PROFILE 3993 U/L (24-204)
[2019-12-25 07:08] LABS: BASO# 0.05 X1000 (0.0-0.2); BASO% 0.6 % (0.0-0.8); EOS# 0.05 X1000 (0.0-0.7); EOS% 0.6 % (0.0-10.0); HEMOGLOBIN 11.9 g/dL (14.0-18.0); IMM GRAN# 0.04 X1000 (0.0-0.04); IMM GRAN% 0.5 % (0.0-0.5); LYMPH# 2.09 X1000 (1.2-3.4); LYMPH% 23.5 % (20.5-51.1); MCH 25.7 PG (27-31); MCHC 32.2 g/dL (33-37); MCV 79.9 FL (81-99); MONO% 12.4 % (1.7-9.3); MPV 9.5 FL (7.4-10.4); NEUT# 5.55 X1000 (1.4-6.5); NEUT% 62.4 % (42.2-75.2); PLT 294 X1000 (130-400); RBC 4.63 XMIL (4.7-6.1); WBC 8.88 X1000 (4.8-10.8)
[2019-12-25 07:11] LABS: CK-MB 40.98 ng/mL (0.0-5.0)
--- NOTE | 2019-12-25 19:56 | PROGRESS NOTE ---
DATE: 12/25/2019 SUBJECTIVE: The patient is resting comfortably in bed. He states that his urine is starting to clear up. He denies having any pain at this time. OBJECTIVE: Vital Signs: Temperature 99 degrees, blood pressure 150/79, heart rate 78, respirations 16, O2 saturations 100% on room air. General: This is a young male lying in bed in no acute distress. Heart: S1, S2 normal. Regular rate and rhythm. Lungs: Clear to auscultation bilaterally. Abdomen: Positive bowel sounds. Soft, nontender, nondistended. Extremities: No edema, no cyanosis. Neurologic: The patient is alert and oriented x4. LABORATORY DATA: White blood cell count 8.8, hemoglobin 11, hematocrit 37, platelets 294,000. Sodium 141, potassium 4.7, chloride 101, CO2 26, BUN 15, creatinine 0.8, glucose 76, calcium 8.2. CK 3993, albumin 3.4. ASSESSMENT AND PLAN: 1. Acute rhabdomyolysis secondary to heavy exercise. The CK is slowly improving. We will continue on the current IV fluid rate. We will repeat the CPK tomorrow. 2. Transaminitis. Slowly improving. This is likely secondary to the patient's underlying rhabdomyolysis. 3. Marijuana use. The patient has been counseled about cessation. 4. Leukocytosis. Resolved. This is most likely reactive. 5. Disposition. Once the patient's CK improves, he can be discharged home. cc: Naina Monsivais MD
[2019-12-25] MEDS: LOVENOX SUBQ SCH (20:14)
[2019-12-26] MEDS: NS 1,000 ML IV SCH ×3 (01:20→17:12)
[2019-12-26 06:33] LABS: AGAP 8; ALBUMIN 3.4 g/dL (3.5-5.0); ALKALINE PHOSPHATASE 39 U/L (32-122); BUN 10 mg/dL (8-22); CALCIUM 8.8 mg/dL (8.8-10.2); CHLORIDE 105 mmol/L (98-107); CK TOTAL 3748 U/L (24-204); COSMO 274; CREATININE 0.8 mg/dL (0.7-1.2); ESTIMATED GFR > 60; GLUCOSE 85 mg/dL (70-104); GOT 117 U/L (10-34); GPT 106 U/L (10-44); POTASSIUM 5.3 mmol/L (3.5-5.1); SODIUM 138 mmol/L (136-145); TCO2 25 mmol/L (25-35); TOTAL BILIRUBIN 0.32 mg/dL (0.20-1.00); TOTAL PROTEIN 6.7 g/dL (6.3-8.3)
[2019-12-26] MEDS ORDERED: ALBUTEROL 0.5% INH CONC FOR HYPERKALEMIA INH ONE (07:29)
[2019-12-26] MEDS ORDERED: D50W SYRINGE IV ONE (07:30)
[2019-12-26] MEDS ORDERED: HUMULIN R IV ONE (07:32)
--- NOTE | 2019-12-26 14:08 | PROGRESS NOTE ---
DATE: 12/26/2019 SUBJECTIVE: The patient is resting comfortably in bed. He has no complaints at this time. OBJECTIVE: Vital Signs: Temperature 98.2 degrees, blood pressure 158/77, heart rate 115, respirations 18, O2 saturation 100% on room air. General: This is a young male, lying in bed, in no acute distress. Heart: S1, S2 normal. Tachycardic. Lungs: Equal air entry bilaterally. No wheezing. No rales. No rhonchi. Abdomen: Positive bowel sounds. Soft, nontender, nondistended. Extremities: No edema, no cyanosis. Neurologic: The patient is alert and oriented x3. LABORATORY DATA: Sodium 138, potassium 5.3, BUN 10, creatinine 0.9, glucose 85, AST 117, ALT 106, alkaline phosphatase 39. CK 3748. Albumin 3.4. ASSESSMENT AND PLAN: 1. Acute rhabdomyolysis secondary to heavy exercise. The CK is slowly decreasing. We will continue with IV fluids. The patient has normal renal function with good urine output. We will repeat the CPK tomorrow. 2. Hyperkalemia. We will treat this and we will repeat the potassium level later this afternoon. 3. Transaminitis. Likely secondary to rhabdomyolysis. Slowly improving. 4. Marijuana use. The patient has been counseled about cessation. 5. Disposition. Once the patient's CK has improved, he can be discharged home. cc: Naina Monsivais MD
[2019-12-26] MEDS: LOVENOX SUBQ SCH (21:18)
[2019-12-27] MEDS: NS 1,000 ML IV SCH ×6 (00:16→22:27)
[2019-12-27 05:50] LABS: AGAP 6; ALBUMIN 3.3 g/dL (3.5-5.0); ALKALINE PHOSPHATASE 36 U/L (32-122); BUN 11 mg/dL (8-22); CALCIUM 8.7 mg/dL (8.8-10.2); CHLORIDE 106 mmol/L (98-107); COSMO 276; CREATININE 0.7 mg/dL (0.7-1.2); ESTIMATED GFR > 60; GLUCOSE 85 mg/dL (70-104); GOT 117 U/L (10-34); GPT 107 U/L (10-44); POTASSIUM 5.1 mmol/L (3.5-5.1); SODIUM 139 mmol/L (136-145); TCO2 27 mmol/L (25-35); TOTAL BILIRUBIN 0.24 mg/dL (0.20-1.00); TOTAL PROTEIN 6.5 g/dL (6.3-8.3)
[2019-12-27 06:07] LABS: CK TOTAL 4329 U/L (24-204)
--- NOTE | 2019-12-27 08:40 | Diag Imaging Result Doc PS360 ---
EXAM: CHEST-1 VIEW HISTORY: dyspnea TECHNIQUE: Single view COMPARISON: 09/13/2019 FINDINGS: The lungs are well expanded. The heart is not enlarged. The vessels are not distended. There are no infiltrates. No effusion identified. IMPRESSION: Negative exam. Electronically signed by Morales Shepard 12/27/2019 8:38 AM
--- NOTE | 2019-12-27 17:56 | PROGRESS NOTE ---
DATE: 12/27/2019 SUBJECTIVE: The patient is resting comfortably in bed. He complains of some generalized aches and pains. He has not had a bowel movement yet. OBJECTIVE: Vital Signs: Temperature 98.4, blood pressure 158/79, heart rate 90, respirations 15, O2 saturation 98% on room air, intake 875, urine output 3.4 L. General: This is a young male lying in bed in no acute distress. Heart: S1, S2 normal. Regular rate and rhythm. Lungs: Equal air entry bilaterally. No wheezing. No rales. Abdomen: Positive bowel sounds. Soft, nontender, nondistended. Extremities: No edema, no cyanosis, no calf tenderness. Neurologic: The patient is alert and oriented x4. LABS: Sodium 139, potassium 5.1, chloride 106. CO2 is 27, BUN 11, creatinine 0.7, glucose 85. CK 4876. ASSESSMENT AND PLAN: 1. Acute rhabdomyolysis secondary to heavy exercise. The patient's CK went up today. We will increase the fluid rate to 150 mL/hr and continue to monitor the urine output closely. I will repeat a CK level tomorrow. 2. Transaminitis. Likely secondary to rhabdomyolysis. Continue to monitor closely for improvement. 3. Constipation. We will start the patient on Colace and MiraLAX. 4. Marijuana use. The patient has been counseled about cessation. 5. Disposition. The patient can be discharged home once his CK has improved. cc: Naina Monsivais MD
[2019-12-27] MEDS: LOPRESSOR PO SCH (21:19)
[2019-12-27] MEDS: LOVENOX SUBQ SCH (21:20)
[2019-12-27] MEDS: COLACE PO SCH (21:20)
[2019-12-28] MEDS: NS 1,000 ML IV SCH ×5 (05:23→20:33)
[2019-12-28 05:44] LABS: AGAP 9; ALB/GLOB RATIO 0.9; ALBUMIN 3.4 g/dL (3.5-5.0); ALKALINE PHOSPHATASE 38 U/L (32-122); BUN 11 mg/dL (8-22); CALCIUM 8.9 mg/dL (8.8-10.2); CHLORIDE 106 mmol/L (98-107); COSMO 278; CREATININE 0.7 mg/dL (0.7-1.2); ESTIMATED GFR > 60; GLUCOSE 84 mg/dL (70-104); GOT 119 U/L (10-34); GPT 116 U/L (10-44); POTASSIUM 4.9 mmol/L (3.5-5.1); SODIUM 140 mmol/L (136-145); TCO2 25 mmol/L (25-35); TOTAL BILIRUBIN 0.33 mg/dL (0.20-1.00)
[2019-12-28 05:59] LABS: CK TOTAL 3787 U/L (24-204)
[2019-12-28] MEDS: LOPRESSOR PO SCH ×2 (09:53→20:32)
[2019-12-28] MEDS: COLACE PO SCH ×2 (09:53→20:37)
--- NOTE | 2019-12-28 16:09 | PROGRESS NOTE ---
DATE: 12/28/2019 SUBJECTIVE: The patient is resting comfortably in bed. He has no complaints. His family is present at the bedside. OBJECTIVE: Vital Signs: Temperature 98.3 degrees, blood pressure 150/78, heart rate 74, respirations 18, O2 saturation 100% on room air. General: This is a young male lying in bed in no acute distress. Heart: S1, S2 normal. Regular rate and rhythm. Lungs: Clear to auscultation bilaterally. No wheezing. No rales. No rhonchi. Abdomen: Positive bowel sounds. Soft, nontender, nondistended. Extremities: No edema, no cyanosis, no calf tenderness. Neurologic: The patient is alert and oriented x3. LABS: Sodium 140, potassium 4.9, chloride 106, CO2 25, BUN 11, creatinine 0.7, glucose 84. CK 3,787. AST 119, ALT 116, alkaline phosphatase 38. ASSESSMENT AND PLAN: 1. Acute rhabdomyolysis secondary to heavy exercise. Slowly improving. Continue on the current IV fluid rate. 2. Transaminitis. Unchanged. Continue to monitor for improvement as the rhabdomyolysis improves. 3. Constipation. Continue on Colace and MiraLAX. 4. Marijuana use. The patient has been counseled about cessation. 5. Deep vein thrombosis prophylaxis. Continue on Lovenox. cc: Naina Monsivais MD MTDD
[2019-12-28] MEDS: LOVENOX SUBQ SCH (20:32)
[2019-12-29 05:38] LABS: HEMATOCRIT 38.2 % (42.0-52.0); HEMOGLOBIN 12.3 g/dL (14.0-18.0); MCH 25.6 PG (27-31); MCHC 32.2 g/dL (33-37); MCV 79.6 FL (81-99); MPV 9.8 FL (7.4-10.4); RBC 4.8 XMIL (4.7-6.1); RDW 15.7 % (11.5-14.5); WBC 6.45 X1000 (4.8-10.8)
[2019-12-29 06:18] LABS: AGAP 9; ALB/GLOB RATIO 1.1; ALBUMIN 3.4 g/dL (3.5-5.0); ALKALINE PHOSPHATASE 39 U/L (32-122); BUN 13 mg/dL (8-22); CALCIUM 8.6 mg/dL (8.8-10.2); CHLORIDE 107 mmol/L (98-107); COSMO 275; CREATININE 0.7 mg/dL (0.7-1.2); ESTIMATED GFR > 60; GLUCOSE 88 mg/dL (70-104); GOT 89 U/L (10-34); GPT 110 U/L (10-44); POTASSIUM 4.7 mmol/L (3.5-5.1); SODIUM 138 mmol/L (136-145); TCO2 22 mmol/L (25-35); TOTAL BILIRUBIN 0.22 mg/dL (0.20-1.00); TOTAL PROTEIN 6.6 g/dL (6.3-8.3)
[2019-12-29 06:47] LABS: CK TOTAL 2621 U/L (24-204)
[2019-12-29] MEDS: NS 1,000 ML IV SCH (09:45)
[2019-12-29] MEDS: COLACE PO SCH (09:45)
[2019-12-29] MEDS: LOPRESSOR PO SCH (09:45)
[2019-12-29 12:06] VITALS: BP 153/70
--- NOTE | 2019-12-29 14:19 | PROGRESS NOTE ---
DATE: 12/29/2019 SUBJECTIVE: The patient is resting comfortably in bed. He has no complaints at this time. OBJECTIVE: Vital Signs: Temperature 98.7 degrees, blood pressure 153/70, heart rate 72, respirations 16, O2 saturations 100% on room air. General: This is a young male, lying in bed in no acute distress. Skin: No rashes, no lesions. Heart: S1, S2 normal. Regular rate and rhythm. Lungs: Clear to auscultation bilaterally. Abdomen: Positive bowel sounds. Soft, nontender, nondistended. Extremities: No edema, no cyanosis. Neurologic: The patient is alert and oriented x3. LABORATORY DATA: 1. CK at 5:30 a.m. 2621. 2. CK at 12:10 p.m. 2807. ASSESSMENT AND PLAN: 1. Acute rhabdomyolysis secondary to heavy exercise. The patient's CK is fluctuating today. It was 2600 this morning and slightly elevated at 2800 this afternoon. We will continue with the current treatment of IV fluids. The patient is diuresing well. We will repeat the CK tomorrow. 2. Transaminitis. Improved. Continue to treat the underlying rhabdomyolysis. 3. Marijuana use. The patient has been counseled about cessation. 4. Deep vein thrombosis prophylaxis. Continue on Lovenox. 5. Disposition. Once the patient's CK is less than 1000, he should be stable for discharge. The patient has been counseled about avoiding heavy weightlifting and exercise. cc: Naina Monsivais MD
--- NOTE | 2019-12-29 21:29 | DISCHARGE SUMMARY ---
ADMISSION DATE: 12/24/2019 DISCHARGE DATE: 12/29/2019 FINAL DISCHARGE DIAGNOSES: 1. Acute rhabdomyolysis, secondary to heavy exercise. 2. Transaminitis, likely secondary to rhabdomyolysis. 3. Marijuana usage. 4. Anemia. HOSPITAL COURSE: Mr. Delcid is a 39-year-old male who presented to the ER with a chief complaint of myalgias. In the ER, the patient was noted to have a CK of 8254. After further questioning, the patient stated that he had been performing a lot of heavy exercise fairly recently. The patient was admitted to the hospitalist service and started on aggressive IV fluid hydration. Also, the patient was noted to have a transaminitis. The patient's drug toxicology screen was noted to be positive for cannabinoids. Slowly over the course of the hospitalization, the patient's CK decreased. Also the transaminitis slowly improved and the CK improved. Today the patient was noted to have a CK of 2800. It was recommended that the patient stay to at least be less than 1000. However, he stated that he had plans and decided to leave the hospital against medical advice. The patient was advised to follow up with his primary care physician as soon as possible for repeat CK. He was also advised against heavy exercise. The patient was also told to return to the ER for further symptoms. cc: Naina Monsivais MD
== END 2019-12-29 14:29 | disposition left against medical advice (07) | DRG 565 ==
LOC: ED 10:52 → EDIPHOLD 14:23 → SUATTDRO 14:23 → 1N 17:10
PROVIDERS: ATTEND Internal Medicine